=== PATIENT | female | born 1950 | race Two or more races ===

== ENCOUNTER → 2016-09-18 13:43 | Outpatient (CLI) | payer MEDICARE | END | disposition home or self-care (01) | LOC: D.LABREF 13:43 | DX: L72.3 Sebaceous cyst (principal) ==

== ENCOUNTER → 2018-05-16 16:11 | Outpatient (CLI) | payer MEDICARE | END | disposition home or self-care (01) | LOC: D.MAMMO 11:45 | DX: Z12.31 Encounter for screening mammogram for malignant neoplasm of breast (principal) ==